=== PATIENT | male | born 1995 | race Caucasian/White ===

== ENCOUNTER 2020-10-31 17:41 | Emergency (ER) | payer OTHER, SELFPAY ==
--- NOTE | ~2020-10-31 | CT_ITS ---
EXAMINATION: CT abdomen pelvis w con DATE: 10/31/2020 19:46 INDICATION: Left lower quadrant abdominal pain TECHNIQUE: Computed tomography (CT) of the abdomen and pelvis was performed with 100 cc Omnipaque 350 intravenous contrast. Automated exposure control and iterative reconstruction technique were employe d. Exam dose: 905.69 mGy-cm total exam DLP. COMPARISON: None. FINDINGS: Normal heart size. No pericardial or pleural effusion. Diffuse hepatic steatosis. No hepatic, splenic, pancreatic, adrenal or renal space-occupying mass les ion is detected. The gallbladder is present. No bile duct or pancreatic duct dilatation. Normal caliber of the abdominal aorta. No intraperitoneal or retroperitoneal or pelvic mass lesion or adenopathy or ascites. The urinary bladder, prostate gland and seminal vesicles are unremarkable. No urinary tract calculus or hydroureteronephrosis. Normal appendix. No bowel obstruction, bowel wall thickening, pneumatosis or intraperitoneal free air . Included skeletal structures are unremarkable. IMPRESSION: Hepatic steatosis Reviewed, dictated and finalized at [facility] Reviewed, dictated and finalized at [facility] [employer] IMPRESSION: Hepatic steatosis
[2020-10-31 17:50] VITALS: BP 137/85; PULSE 119; RESP 18; TEMP 36.3; O2SAT 98
[2020-10-31 18:25] LABS: Add Urine Microscopic? YES; Amorphous Sediment Urine Few; Appearance Urine Turbid (Clear); Bacteria Urine Trace /hpf; Bilirubin Urine Negative (Negative); Blood Urine Negative (Negative); Color Urine Yellow (Yellow); Glucose Urine UA Negative (Negative); Ketones Urine Negative (Negative); Leukocyte Esterase Ur Negative LEU/UL (Negative); Mucus Urine Few /lpf; Nitrate Urine Negative (Negative); Protein Urine 1+ mg/dL (Negative); Specific Grav Ur 1.021 (1.001-1.035); Urobilinogen Urine Negative mg/dL (<2.0)
[2020-10-31] MEDS: MORPHINE SULFATE (*CRX) 4 MG/ML INJ IV PUSH (19:02)
--- NOTE | 2020-10-31 19:09 | PC.NURSE ---
assuming care of pt at this time, received report from lidia rodriguez
[2020-10-31 19:10] LABS: Basophils Absolute Auto 0.1 K/mm3 (0.0-0.1); Basophils Percent Auto 0.7 % (0.2-1.2); Eosinophils Absolute Auto 0.2 K/mm3 (0-0.3); Eosinophils Percent Auto 1.4 % (0-4.4); Hematocrit 46.6 % (42.0-52.0); Hemoglobin 16.7 g/dL (14.0-18.0); Immature Granulocyte Absolute 0.03 K/mm3 (0.00-0.031); Immature Granulocyte Percent A 0.3 % (0-0.5); Lymphocytes Absolute Auto 3.63 K/mm3 (0.9-3.2); Mean Corpuscular HGB Conc 35.8 g/dl (32-36); Mean Corpuscular Hemoglobin 32.2 pg (26-34); Mean Corpuscular Volume 89.8 fl (80-100); Mean Platelet Volume 11.1 fl (7.4-10.4); Monocytes Percent Auto 8.7 % (2.6-8.5); Neutrophils Absolute Auto 6.5 K/mm3 (1.3-6.7); Neutrophils Percent Auto 56.9 % (45.5-73.1); Platelet Count Result 300 k/mm3 (150-375); Red Blood Count 5.19 M/mm3 (4.6-6.20); Red Cell Distribution Width 12.4 % (11.5-14.5); White Blood Count 11.4 K/mm3 (4.5-10.0)
--- NOTE | 2020-10-31 19:19 | ED.MALEGU ---
HPI - Male Genitourinary General Chief complaint: Urogenital-Male Stated complaint: bladder spasms Time Seen by Provider: 10/31/20 18:07 History of Present Illness HPI Narrative: Patient is a 25-year-old male who presents ER with dysuria pain over the last day. Has history of prostatitis and epididymitis in the past. Reports it beavers when he pees and he has suprapubic discomfort. Patient also reports that he is currently experiencing a flare of his hemorrhoids. Last sexual activity 4 months ago. Related Data Home Medications Medication Instructions Recorded Confirmed prazosin 5 mg PO HS 10/31/20 10/31/20 sertraline 100 mg PO DAILY 10/31/20 Allergies Allergy/AdvReac Type Severity Reaction Status Date / Time Penicillins Allergy Mild Rash Verified 10/31/20 17:53 amoxicillin Allergy Rash Verified 10/31/20 17:53 Review of Systems Review of Systems: No All systems reviewed & are unremarkable except as noted in HPI and below Constitutional: Constitutional: Denies chills, Denies fever(s) and Denies weakness Respiratory: Respiratory: Denies cough, Denies dyspnea and Denies wheezing Gastrointestinal: Gastrointestinal: Reports abdominal pain, Denies nausea and Denies vomiting Comments: Hemorrhoids Genitourinary: Genitourinary: Reports dysuria, Denies penile discharge, Denies testicular pain and Reports urinary frequency PMFSH Past Medical History Medical History (Updated 10/31/20 @ 20:54 by Marcus Guzman MD) Anal fissure Hemorrhoids Traumatic brain injury Surgical History Surgical History (Updated 10/31/20 @ 20:52 by Marcus Guzman MD) H/O hemorrhoidectomy Social History Social History (Updated 10/31/20 @ 20:52 by Marcus Guzman MD) Social History: Gender identity (if verbalized by the patient): Male Exam Narrative: Exam Narrative: GENERAL: Well-appearing, well-nourished, and in no acute distress. HEAD: Normocephalic, atraumatic. CHEST: Clear to auscultation. No respiratory distress. HEART: Tachycardic and regular. Normal peripheral pulses. ABDOMEN: Soft, tender to palpation to the left lower quadrant with guarding, nondistended, normal active bowel sounds. EXTREMITIES: Normal range of motion. No edema. SKIN: Warm, dry, no rash. NEURO: Alert and oriented x3. PSYCH: Normal mood and affect. Course Course Emergency Course: Pain controlled. Informed of results. Will discharge on Cipro as they do have concerned that he has potentially prostatitis versus UTI. There are a few white blood cells in his urine. To look at the urine in the room it is very cloudy and dark. Given his previous history of infections be alexander started on ciprofloxacin. He can follow-up with his primary care physician. Vital Signs Vital signs: Vital Signs Temperature 97.4 F L 10/31/20 17:50 Pulse Rate 119 H 10/31/20 17:50 Respiratory Rate 18 10/31/20 17:50 Blood Pressure 137/85 10/31/20 17:50 Pulse Oximetry 98 10/31/20 17:50 Temperature 97.4 F L 10/31/20 17:50 Pulse Rate 83 10/31/20 20:54 Respiratory Rate 16 10/31/20 20:54 Blood Pressure 127/83 10/31/20 20:54 Pulse Oximetry 96 10/31/20 20:54 MDM - Male Genitourinary Lab Data Result diagrams: 10/31/20 19:01 10/31/20 19:01 Labs: Lab Results 10/31/20 10/31/20 10/31/20 Range/Units 18:13 19:01 19:01 WBC 11.4 H (4.5-10.0) K/mm3 RBC 5.19 (4.6-6.20) M/mm3 Hgb 16.7 (14.0-18.0) g/dL Hct 46.6 (42.0-52.0) % MCV 89.8 (80-100) fl MCH 32.2 (26-34) pg MCHC 35.8 (32-36) g/dl RDW 12.4 (11.5-14.5) % Plt Count 300 (150-375) k/mm3 MPV 11.1 H (7.4-10.4) fl Immature Gran % (Auto) 0.3 (0-0.5) % Neut % (Auto) 56.9 (45.5-73.1) % Lymph % (Auto) 32.0 (18.3-44.2) % Murray % (Auto) 8.7 H (2.6-8.5) % Eos % (Auto) 1.4 (0-4.4) % Baso % (Auto) 0.7 (0.2-1.2) % Lymph # (Auto) 3.63 H (0.9-3.2) K/mm3 Murray # (Aut
[2020-10-31 19:27] LABS: Anion Gap 2 mmol/L (8-16); Blood Urea Nitrogen 15 mg/dL (9-20); Carbon Dioxide 29 mmol/L (22-30); Chloride 108 mmol/L (98-107); Estimated CRCL calculation 109 ml/min; Estimated Glomerular Filt Rate > 60; Glucose 68 mg/dL (75-110); Potassium 3.9 mmol/L (3.4-5.0); Sodium 139 mmol/L (137-145)
[2020-10-31 19:31] VITALS: BP 132/74; PULSE 96; RESP 14; O2SAT 96
[2020-10-31 19:54] VITALS: BP 124/88; PULSE 81; RESP 18; O2SAT 95
[2020-10-31] MEDS: HYDROcodone/acetaminophen (*CRX) 5-325 MG TABLET 1 TAB PO (20:23)
[2020-10-31 20:54] VITALS: BP 127/83; PULSE 83; RESP 16; O2SAT 96
[2020-10-31 21:03] VITALS: BP 129/79; PULSE 82; RESP 16; O2SAT 99
== END 2020-10-31 21:07 | disposition home or self-care (01) ==
PROVIDERS: Emergency Provider Emergency Medicine
DX: N39.0 Urinary tract infection, site not specified (principal); Z87.820 Personal history of traumatic brain injury
CPT/HCPCS: 36415; 74177; 80048; 81001; 85025; 96374; 99284; A9270; J2270; Q9967